=== PATIENT | male | born 1945 | race Caucasian/White ===

== ENCOUNTER 2017-11-02 12:35 | Emergency (ER) | payer MEDICARE, SELFPAY ==
[2017-11-02 12:42] VITALS: BP 147/83; PULSE 108; RESP 20; TEMP 37.7; O2SAT 97; BMI 25.0
--- NOTE | 2017-11-02 12:46 | XR_ITS ---
XR chest 2V HISTORY: ITS.REASON: COUGH ORDERING PHYSICIAN: Abe Villa PATIENT AGE: 72 years COMPARISON: 24/11/2008 FINDINGS: The cardiomediastinal silhouette and pulmonary vascularity are within normal limits. The lungs are clear without infiltrates, suspicious nodules, or pleural effusions. No acute bony abnormalities. IMPRESSION: No change with no acute finding
--- NOTE | 2017-11-02 13:36 | HMH.EDUTC ---
[facility] [place] Clinical Impression: Bronchitis Disposition: Home, Self-Care Condition on Discharge: Good Instructions: DI for Acute Bronchitis Additional Instructions: * start antibiotic today. Be sure to complete entire prescription even if feeling better. CXR negative but with cough x 3 weeks, more of a precaution * Monitor Temp. Follow up if fever develops * humidifier/vaporizer/hot steamy shower * Tessalon Perles will not cause drowsiness, use to help stop cough so that you can get some rest. If cough becomes productive, stop these and start mucinex. * Start steroid today. Helps with inflammation therefore, cough and wheezing. Follow directions on package. Rvwd side effects. Follow up with primary care IMMEDIATELY for new or worsening symptoms OR no noticeable improvement over the next 48-72 hours. This cough could be due to your lisinopril. Even if taken for years, the cough can develop at anytime. So if no improvement, discuss this with your primary care. 911 for difficulty breathing. Prescriptions: Azithromycin [Z-Nicanor 250mg Tab] 250 mg PO UD DOSE PK #6 tab Benzonatate [Tessalon Perle 100mg Cap] 200 mg PO TID PRN #25 cap PRN Reason: Cough predniSONE [Deltasone 10mg tablet] 10 mg PO BID #10 tab Time of Disposition: 13:42 Medical Decision Making Vital Signs: 11/02/17 12:42 Temperature 99.8 F H Temperature Source Temporal Artery Scan Pulse Rate [Right] 108 H Respiratory Rate 20 Blood Pressure [Right Arm] 147/83 Blood Pressure Mean [Right Arm] 104 Blood Pressure Source [Right Arm] Automatic Cuff Blood Pressure Position [Right Arm] Sitting 02 Sat by Pulse Oximetry 97 Oxygen Delivery Method Room Air Orders (Tests/Meds): ORDERS Category Date Time Status CXR 2 view (NOT portable) [XR chest 2V] Stat Exams 11/02/17 12:46 Taken - Radiology Data #1 Image(s): Chest Image Reviewed: Yes I reviewed the patient's radiology image, Yes I reviewed the patient's radiology image w/the ED provider Carrillo w/ Dr. Antunez, no acute findings - Sonny Inquiry Pt receiving controlled substance: No [facility] [place] - General Stated complaint: cough congestion Time Seen by Provider: 11/02/17 12:45 Mode of Arrival: Ambulatory Source of Information: Patient Limitations: No Limitations Description of Symptoms (Recalled from Triage Doc. by RN): COUGH CONGESTION 3 WKS HEENT Symptoms (Recalled from RN notes): Yes Resp Symptoms (Recalled from RN notes): No Skin Symptoms (Recalled from RN notes): No MS Symptoms (Recalled from RN notes): No Functional Status (Recalled from RN notes): N - History of Present Illness Provider Complaint: c/o persistant dry hacking cough x 2-3 weeks. I get this once a year every year . Started w/ PND and cold symptoms . Those all resolved without treatment but cough has lingered. Denies taking or trying anything for symptoms, including cold symptoms. Just tried waiting it out . No known sick contacts. No SOA, wheezing. Rarely a scant amount of yellow sputum. - Related Data Home Medications Medication Instructions Recorded Confirmed Lisinopril [Lisinopril 10mg Tab] 10 mg PO DAILY 11/02/17 11/02/17 Previous Rx's Medication Instructions Recorded Azithromycin [Z-Nicanor 250mg Tab] 250 mg PO UD DOSE PK #6 tab 11/02/17 Benzonatate [Tessalon Perle 100mg 200 mg PO TID PRN #25 cap 11/02/17 Cap] predniSONE [Deltasone 10mg tablet] 10 mg PO BID #10 tab 11/02/17 Allergies Allergy/AdvReac Type Severity Reaction Status Date / Time No Known Allergies Allergy Verified 11/02/17 12:49 - Worker's Comp Is this a Worker's Comp case?: No [facility] History I have reviewed the patient's past medical history: Yes Medical History: Reports:: Hypertension (treated w/ lisinopril) Denies:: Diabetes Mellitus Type 1, Diabetes Mellitus Type 2 Other Surgeries: Yes: No Previous Surgery - *Social History Smoking Status: Never smoker Alcohol Intake: never - Psychiatric History Expresses thoug
--- NOTE | 2017-11-02 13:40 | ED_ITS ---
[facility] [place] Clinical Impression: Bronchitis Disposition: Home, Self-Care Condition on Discharge: Good Instructions: DI for Acute Bronchitis Additional Instructions: * start antibiotic today. Be sure to complete entire prescription even if feeling better. CXR negative but with cough x 3 weeks, more of a precaution * Monitor Temp. Follow up if fever develops * humidifier/vaporizer/hot steamy shower * Tessalon Perles will not cause drowsiness, use to help stop cough so that you can get some rest. If cough becomes productive, stop these and start mucinex. * Start steroid today. Helps with inflammation therefore, cough and wheezing. Follow directions on package. Rvwd side effects. Follow up with primary care IMMEDIATELY for new or worsening symptoms OR no noticeable improvement over the next 48-72 hours. This cough could be due to your lisinopril. Even if taken for years, the cough can develop at anytime. So if no improvement, discuss this with your primary care. 911 for difficulty breathing. Prescriptions: Azithromycin [Z-Nicanor 250mg Tab] 250 mg PO UD DOSE PK #6 tab Benzonatate [Tessalon Perle 100mg Cap] 200 mg PO TID PRN #25 cap PRN Reason: Cough predniSONE [Deltasone 10mg tablet] 10 mg PO BID #10 tab Time of Disposition: 13:42 Medical Decision Making Vital Signs: 11/02/17 12:42 Temperature 99.8 F H Temperature Source Temporal Artery Scan Pulse Rate [Right] 108 H Respiratory Rate 20 Blood Pressure [Right Arm] 147/83 Blood Pressure Mean [Right Arm] 104 Blood Pressure Source [Right Arm] Automatic Cuff Blood Pressure Position [Right Arm] Sitting 02 Sat by Pulse Oximetry 97 Oxygen Delivery Method Room Air Orders (Tests/Meds): ORDERS Category Date Time Status CXR 2 view (NOT portable) [XR chest 2V] Stat Exams 11/02/17 12:46 Taken - Radiology Data #1 Image(s): Chest Image Reviewed: Yes I reviewed the patient's radiology image, Yes I reviewed the patient's radiology image w/the ED provider Carrillo w/ Dr. Antunez, no acute findings - Sonny Inquiry Pt receiving controlled substance: No [facility] [place] - General Stated complaint: cough congestion Time Seen by Provider: 11/02/17 12:45 Mode of Arrival: Ambulatory Source of Information: Patient Limitations: No Limitations Description of Symptoms (Recalled from Triage Doc. by RN): COUGH CONGESTION 3 WKS HEENT Symptoms (Recalled from RN notes): Yes Resp Symptoms (Recalled from RN notes): No Skin Symptoms (Recalled from RN notes): No MS Symptoms (Recalled from RN notes): No Functional Status (Recalled from RN notes): N - History of Present Illness Provider Complaint: c/o persistant dry hacking cough x 2-3 weeks. I get this once a year every year . Started w/ PND and cold symptoms . Those all resolved without treatment but cough has lingered. Denies taking or trying anything for symptoms, including cold symptoms. Just tried waiting it out . No known sick contacts. No SOA, wheezing. Rarely a scant amount of yellow sputum. - Related Data Home Medications Medication Instructions Recorded Confirmed Lisinopril [Lisinopril 10mg Tab] 10 mg PO DAILY 11/02/17 11/02/17 Previous Rx's Medication Instructions Recorded Azithromycin [Z-Nicanor 250mg Tab] 250 mg PO UD DOSE PK #6 tab 11/02/17 Benzonatate [Tessalon Perle 100mg 200 mg PO TID PRN #25 cap 11/02/17 Cap] predniSONE [Deltasone
== END 2017-11-02 13:45 | disposition home or self-care (01) ==
PROVIDERS: Emergency Provider Nurse Practitioner Family; Family Provider Internal Medicine
DX: J20.9 Acute bronchitis, unspecified (principal); I10 Essential (primary) hypertension
CPT/HCPCS: G0463; 71046; 99202

== ENCOUNTER → 2017-12-14 15:10 | Outpatient (CLI) | payer MEDICARE, SELFPAY ==
--- NOTE | 2017-12-14 15:21 | XR_ITS ---
XR chest 2V Ordering Physician: Anthony Sprague Patient Age: 72 years: Male HIST cough with sputum production. Rales left chest ORY: ITS.REASON: COUGH,SPUTUM,RALES LT LUNG BASE TECHNIQUE: PA and lateral chest COMPARISON : Previous chest film 11/02/2017 FINDINGS On PA film note slight accentuation of markings at the retrocardiac region which may reflect a subtle early infiltrate the latter, and higher contrast technique on today's radiograph may also accentuate these markings right cardiac region left base. The left upper lung field is clear. The right lung is clear. Lateral film shows no prominent findings in appears similar to previous studies . No pleural effusion or pneumothorax. Tortuous aorta. Mild elevation right hemidiaphragm again observed. IMPRESSION: \ Question, suspect minimal wispy infiltrate at the left lower lobe retrocardiac region. .
== END ==
PROVIDERS: PCP Internal Medicine; Visit Provider Internal Medicine
DX: R05 Cough (principal); R09.3 Abnormal sputum; R09.89 Other specified symptoms and signs involving the circulatory and respiratory systems
CPT/HCPCS: 71046

== ENCOUNTER → 2019-11-24 09:33 | Outpatient (CLI) | payer MEDICARE, SELFPAY ==
--- NOTE | 2019-11-24 09:42 | US_ITS ---
APPROVED REPORT Exam Type: Lower Extremity Segmental Pressures Crate Builder: Kinza Crane RDCS Indications Claudication: Edema Risk Factors History of Smoking Pressures/Indices Right Indices Left Indices Brachial 132.00 mmHg Brachial 125.00 mmHg Low Thigh 134.00 mmHg 1.02 Low Thigh 143.00 mmHg 1.08 Calf 156.00 mmHg 1.18 Calf 156.00 mmHg 1.18 Ankle(PT) 155.00 mmHg 1.17 Ankle(PT) 156.00 mmHg 1.18 Ankle(DP) 142.00 mmHg 1.08 Ankle(DP) 131.00 mmHg 0.99 Digit 82.00 mmHg 0.62 Digit 54.00 mmHg 0.41 Findings R SHEILA 1.17 L SHEILA 1.18 R TBI .62 L TBI .41 NORMAL WAVEFORMS DIMINISHED PULSES Conclusion NORMAL WAVEFORMS DIMINISHED PULSES Normal SHEILA's Low left TBI suggesting small vessel disease Electronically signed by : Valentin Holman MD 11/25/2019 17:30:47
== END ==
PROVIDERS: PCP Internal Medicine; Visit Provider Internal Medicine
DX: I70.213 Atherosclerosis of native arteries of extremities with intermittent claudication, bilateral legs (principal); M79.662 Pain in left lower leg; M79.661 Pain in right lower leg; I10 Essential (primary) hypertension
CPT/HCPCS: 93923; 93924

== ENCOUNTER → 2021-11-20 13:11 | Outpatient (CLI) | payer MEDICARE, SELFPAY ==
[2021-11-20 14:00] LABS: Basophils # 0.1 K/mm3 (0-0.2); Basophils % 2.6 % (0.1-2.0); Eosinophils # 0.2 K/mm3 (0.0-0.4); Lymphocytes % 25.6 % (10-50); Mean Corpuscular HGB Conc 32.5 g/dL (31.8-35.4); Mean Corpuscular Hemoglobin 30.8 pg (27.0-31.2); Mean Corpuscular Volume 94.9 fl (80-94); Mean Platelet Volume 8.2 fl (7.4-10.4); Monocytes # 0.3 K/mm3 (0.1-1.0); Monocytes % 7.9 % (1.7-9.3); Neutrophils # 2.3 K/mm3 (1.8-7.8); Neutrophils % 59.8 % (37.0-80.0); Platelet Count 261 K/mm3 (142-424); Red Blood Count 4.53 M/mm3 (4.60-6.20); Red Cell Distribution Width 13.8 % (11.5-17.5); White Blood Count 3.8 K/mm3 (4.8-10.8)
[2021-11-20 14:31] LABS: Alanine Aminotransferase 21 U/L (12-78); Albumin Level 4.3 g/dl (3.5-5.0); Albumin/Globulin Ratio 2.3 (1.1-1.8); Alkaline Phosphatase 50 U/L (38-126); Anion Gap 7.7 mEq/L (5-15); Aspartate Amino Transferase 35 U/L (17-59); Bilirubin,Total 0.5 mg/dl (0.2-1.3); Blood Urea Nitrogen 13 mg/dl (9-20); Calcium 9.3 mg/dl (8.4-10.2); Carbon Dioxide 32 mmol/L (22.0-30.0); Chloride 107 mmol/L (98-107); Chol/HDL Ratio 2.6 (1-3.5); Cholesterol 228 mg/dl (140-200); Estimated Glomerular Filt Rate 82 ml/min (>60); GFR (African American) 99 ML/MIN (>60); Globulin 1.9 g/dL (1.3-3.2); Glucose 85 mg/dl (74-100); HDL Cholesterol 88 mg/dl (40-60); Potassium 4.7 mmoL/L (3.5-5.1); Sodium 142 mmol/L (136-145); Total Protein,Serum 6.2 g/dl (6.3-8.2); Triglycerides 122 mg/dl (30-150); VLDL Cholesterol 24 mg/dL (0-40)
[2021-11-20 14:42] LABS: Direct LDL Cholesterol 98.41 mg/dL (100-129)
[2021-11-20 15:02] LABS: Prostate Specific Ag Screen 1.6 ng/ml (0.0-4.0)
== END ==
PROVIDERS: Visit Provider Internal Medicine
DX: I10 Essential (primary) hypertension (principal); E78.5 Hyperlipidemia, unspecified; M15.0 Primary generalized (osteo)arthritis; N40.1 Benign prostatic hyperplasia with lower urinary tract symptoms; Z12.5 Encounter for screening for malignant neoplasm of prostate
CPT/HCPCS: 80053; 80061; 85025; G0103

== ENCOUNTER → 2022-05-20 13:29 | Outpatient (CLI) | payer MEDICARE, SELFPAY ==
[2022-05-20 15:13] LABS: Alanine Aminotransferase 20 U/L (12-78); Albumin Level 3.7 g/dl (3.5-5.0); Albumin/Globulin Ratio 1.7 (1.1-1.8); Alkaline Phosphatase 51 U/L (38-126); Anion Gap 5.3 mEq/L (5-15); Aspartate Amino Transferase 31 U/L (17-59); Bilirubin,Total 0.3 mg/dl (0.2-1.3); Blood Urea Nitrogen 13 mg/dl (9-20); Calcium 8.8 mg/dl (8.4-10.2); Carbon Dioxide 29 mmol/L (22.0-30.0); Chloride 108 mmol/L (98-107); Cholesterol 207 mg/dl (140-200); Estimated Glomerular Filt Rate 94 ml/min (>60); GFR (African American) 113 ML/MIN (>60); Globulin 2.2 g/dL (1.3-3.2); Glucose 84 mg/dl (74-100); HDL Cholesterol 68 mg/dl (40-60); Potassium 4.3 mmoL/L (3.5-5.1); Sodium 138 mmol/L (136-145); Total Protein,Serum 5.9 g/dl (6.3-8.2); Triglycerides 109 mg/dl (30-150); VLDL Cholesterol 22 mg/dL (0-40)
[2022-05-20 15:25] LABS: Direct LDL Cholesterol 96.79 mg/dL (100-129)
== END ==
PROVIDERS: PCP Internal Medicine; Visit Provider Internal Medicine
DX: I10 Essential (primary) hypertension (principal); E78.5 Hyperlipidemia, unspecified; Z85.46 Personal history of malignant neoplasm of prostate
CPT/HCPCS: 80053; 80061

== ENCOUNTER 2022-11-04 10:47 | Emergency (ER) | payer MEDICARE, SELFPAY ==
[2022-11-04 10:47] VITALS: BP 164/92; PULSE 73; RESP 18; TEMP 36.9; O2SAT 97; BMI 23.3
--- NOTE | 2022-11-04 11:26 | HMH.EDGENADL ---
Discharge Plan Disposition Patient Disposition: Home, Self-Care Condition: Fair Prescriptions Prescriptions: New cephalexin 750 mg capsule 750 mg PO Q8H 7 Days Qty: 21 0RF No Action lisinopril 10 MG tablet 10 mg PO DAILY prednisone 10 MG tablet 10 mg PO BID Qty: 10 0RF benzonatate 100 MG capsule 200 mg PO TID PRN (Reason: Cough) Qty: 25 0RF azithromycin 250 MG tablet 250 mg PO UD DOSE PK Qty: 6 0RF Rx Instructions: Take two (2) tablets today, then one (1) tablet days #2 thru #5 Referrals Follow up/Referrals: Anthony Sprague MD [Primary Care Provider] - See instructions Clinical Impressions Clinical Impression: Foreign body hand Instructions Patient Instructions: DI for Laceration Repair Discharge ED Provider: Bandar Perez General Adult HPI General Chief complaint: Wound/Laceration Stated complaint: RT hand laceration 11/04 AO@home Time Seen by Provider: 11/04/22 10:47 Mode of Arrival: Ambulatory Source of Information: Patient Limitations: No Limitations Description of Symptoms (Recalled from ER Triage Doc. by RN): Pt has open area to [facility] area, states he hit his hand earlier today busting it open. Pt reports the area that is open has a old piece of metal in it that has been there a lot of years . No active bleeding noted. History of Present Illness HPI narrative: Patient is a 77-year-old male who presents with concern for a right hand foreign body and laceration. He states that approximately 50 years ago he got a metallic foreign body in his right hand. He did not remove it at the time as they said to leave it unless it ended up bothering him. He says that he hit his hand earlier today and the area seem to break open and he could see the foreign body. He tried to get it out himself but he was unable to. He denies any numbness or tingling to the extremity. Denies any other injuries. Related Data Home Medications Medication Instructions Recorded Confirmed lisinopril 10 mg tablet 10 mg PO DAILY Hypertension 11/02/17 11/02/17 Previous Rx's Medication Instructions Recorded azithromycin 250 mg tablet 250 mg PO UD DOSE PK #6 tabs 11/02/17 benzonatate 100 mg capsule 200 mg PO TID PRN Cough #25 caps 11/02/17 prednisone 10 mg tablet 10 mg PO BID #10 tabs 11/02/17 cephalexin 750 mg capsule 750 mg PO Q8H 7 days #21 caps 11/04/22 Allergies Allergy/AdvReac Type Severity Reaction Status Date / Time No Known Allergies Allergy Verified 11/02/17 12:49 [facility] Disclaimer: The information contained in this section may have been updated after the patient was seen, as this information can be updated by other users. Social History Smoking Status: Never smoker alcohol intake: never current occupational status: previously employed Travel in the last 8 weeks: None ROS Obtained: Yes All systems reviewed & no additional complaints except as documented A 14 point review of system was obtained and otherwise negative except per HPI Physical Exam General General appearance: alert and in no apparent distress Head Head exam: atraumatic, normocephalic and normal inspection Eye Eye exam: Present normal appearance, PERRL and EOMI ENT ENT exam: Present normal exam, normal oropharynx, mucous membranes moist, TM's normal bilaterally and normal external ear exam Neck Neck exam: Present normal inspection, full ROM and trachea midline; Absent meningismus or lymphadenopathy Chest Chest inspection: Present normal inspection and symmetric chest wall rise; Absent tenderness Respiratory Respiratory exam: Present normal lung sounds bilaterally; Absent respiratory distress Cardiovascular Cardiovascular exam: Present regular rate and normal rhythm; Absent JVD Abdominal Exam Abdominal exam: Present soft and normal bowel sounds; Absent distention, tenderness or guarding Extremities Exam Extremities exam: Present normal inspection, full ROM and normal capillary re
[2022-11-04 12:02] VITALS: BP 160/80; PULSE 66; RESP 18; TEMP 36.8; O2SAT 97
== END 2022-11-04 11:40 | disposition home or self-care (01) ==
PROVIDERS: Emergency Provider Student in an Organized Health Care Education/Training Program; PCP Internal Medicine
DX: S61.421A Laceration with foreign body of right hand, initial encounter (principal); W45.8XXA Other foreign body or object entering through skin, initial encounter; W22.09XA Striking against other stationary object, initial encounter
CPT/HCPCS: 12002; 10120; 99283; 99284

== ENCOUNTER → 2022-11-18 13:19 | Outpatient (CLI) | payer MEDICARE, SELFPAY ==
[2022-11-18 14:24] LABS: Basophils # 0.1 K/mm3 (0-0.2); Basophils % 2.8 % (0.1-2.0); Eosinophils # 0.2 K/mm3 (0.0-0.4); Eosinophils % 3.6 % (0.1-12.0); Hematocrit 42.7 % (42.0-52.0); Hemoglobin 14.1 g/dL (14.1-18.0); Lymphocytes % 24.5 % (10-50); Mean Corpuscular HGB Conc 33.1 g/dL (31.8-35.4); Mean Corpuscular Hemoglobin 30.9 pg (27.0-31.2); Mean Corpuscular Volume 93.4 fl (80-94); Monocytes # 0.4 K/mm3 (0.1-1.0); Monocytes % 8.5 % (1.7-9.3); Neutrophils # 2.5 K/mm3 (1.8-7.8); Neutrophils % 60.6 % (37.0-80.0); Platelet Count 275 K/mm3 (142-424); Red Blood Count 4.57 M/mm3 (4.60-6.20); Red Cell Distribution Width 13.4 % (11.5-17.5); White Blood Count 4.1 K/mm3 (4.8-10.8)
[2022-11-18 15:30] LABS: Alanine Aminotransferase 18 U/L (12-78); Albumin/Globulin Ratio 1.8 (1.1-1.8); Alkaline Phosphatase 51 U/L (38-126); Anion Gap 8.3 mEq/L (5-15); Aspartate Amino Transferase 25 U/L (17-59); Bilirubin,Total 0.4 mg/dl (0.2-1.3); Blood Urea Nitrogen 14 mg/dl (9-20); Calcium 8.7 mg/dl (8.4-10.2); Carbon Dioxide 30 mmol/L (22.0-30.0); Chloride 105 mmol/L (98-107); Chol/HDL Ratio 2.3 (1-3.5); Cholesterol 205 mg/dl (140-200); Estimated Glomerular Filt Rate 82 ml/min (>60); GFR (African American) 99 ML/MIN (>60); Globulin 2.2 g/dL (1.3-3.2); Glucose 83 mg/dl (74-100); HDL Cholesterol 91 mg/dl (40-60); Potassium 4.3 mmoL/L (3.5-5.1); Sodium 139 mmol/L (136-145); Total Protein,Serum 6.2 g/dl (6.3-8.2); Triglycerides 80 mg/dl (30-150); VLDL Cholesterol 16 mg/dL (0-40)
[2022-11-18 15:51] LABS: Direct LDL Cholesterol 82.42 mg/dL (100-129)
== END ==
PROVIDERS: PCP Internal Medicine; Visit Provider Internal Medicine
DX: I10 Essential (primary) hypertension (principal); E78.5 Hyperlipidemia, unspecified; M15.0 Primary generalized (osteo)arthritis; Z85.46 Personal history of malignant neoplasm of prostate; Z12.5 Encounter for screening for malignant neoplasm of prostate
CPT/HCPCS: 80053; 80061; 85025; G0103

== ENCOUNTER → 2023-05-26 13:29 | Outpatient (CLI) | payer MEDICARE, SELFPAY ==
[2023-05-26 15:32] LABS: Basophils # 0.1 K/mm3 (0-0.2); Basophils % 1.6 % (0.1-2.0); Eosinophils # 0.2 K/mm3 (0.0-0.4); Eosinophils % 4.8 % (0.1-12.0); Hematocrit 44.1 % (42.0-52.0); Hemoglobin 13.5 g/dL (14.1-18.0); Lymphocytes % 30.5 % (10-50); Mean Corpuscular HGB Conc 30.7 g/dL (31.8-35.4); Mean Corpuscular Volume 94.5 fl (80-94); Mean Platelet Volume 8.4 fl (7.4-10.4); Monocytes # 0.3 K/mm3 (0.1-1.0); Monocytes % 9.6 % (1.7-9.3); Neutrophils # 1.8 K/mm3 (1.8-7.8); Neutrophils % 53.5 % (37.0-80.0); Platelet Count 239 K/mm3 (142-424); Red Blood Count 4.66 M/mm3 (4.60-6.20); Red Cell Distribution Width 13.8 % (11.5-17.5); White Blood Count 3.4 K/mm3 (4.8-10.8)
[2023-05-26 16:35] LABS: Alanine Aminotransferase 20 U/L (12-78); Albumin Level 3.9 g/dl (3.5-5.0); Albumin/Globulin Ratio 1.8 (1.1-1.8); Alkaline Phosphatase 53 U/L (38-126); Anion Gap 11.4 mEq/L (5-15); Aspartate Amino Transferase 26 U/L (17-59); Bilirubin,Total 0.5 mg/dl (0.2-1.3); Blood Urea Nitrogen 14 mg/dl (9-20); Calcium 8.7 mg/dl (8.4-10.2); Carbon Dioxide 29 mmol/L (22.0-30.0); Chloride 104 mmol/L (98-107); Chol/HDL Ratio 2.3 (1-3.5); Cholesterol 201 mg/dl (140-200); Estimated Glomerular Filt Rate 109 ml/min (>60); GFR (African American) 132 ML/MIN (>60); Globulin 2.2 g/dL (1.3-3.2); Glucose 77 mg/dl (74-100); HDL Cholesterol 89 mg/dl (40-60); Potassium 4.4 mmoL/L (3.5-5.1); Sodium 140 mmol/L (136-145); Total Protein,Serum 6.1 g/dl (6.3-8.2); Triglycerides 103 mg/dl (30-150); VLDL Cholesterol 21 mg/dL (0-40)
[2023-05-26 16:47] LABS: Direct LDL Cholesterol 82.77 mg/dL (100-129)
[2023-05-26 17:26] LABS: Vitamin B12 215 pg/mL (239-931)
== END ==
PROVIDERS: PCP Internal Medicine; Visit Provider Internal Medicine
DX: I10 Essential (primary) hypertension (principal); E78.5 Hyperlipidemia, unspecified; R20.2 Paresthesia of skin; M15.0 Primary generalized (osteo)arthritis; Z85.46 Personal history of malignant neoplasm of prostate
CPT/HCPCS: 80053; 80061; 82607; 84443; 85025

== ENCOUNTER 2023-11-27 12:38 | Outpatient (CLI) | payer MEDICARE, SELFPAY ==
[2023-11-27 15:14] LABS: Alanine Aminotransferase 21 U/L (12-78); Albumin Level 4.3 g/dl (3.5-5.0); Alkaline Phosphatase 58 U/L (38-126); Anion Gap 9.2 mEq/L (5-15); Aspartate Amino Transferase 28 U/L (17-59); Bilirubin,Total 0.4 mg/dl (0.2-1.3); Blood Urea Nitrogen 17 mg/dl (9-20); Calcium 9.4 mg/dl (8.4-10.2); Carbon Dioxide 30 mmol/L (22.0-30.0); Chloride 103 mmol/L (98-107); Chol/HDL Ratio 2.7 (1-3.5); Cholesterol 238 mg/dl (140-200); Estimated Glomerular Filt Rate 81 ml/min (>60); GFR (African American) 98 ML/MIN (>60); Globulin 2.2 g/dL (1.3-3.2); Glucose 87 mg/dl (74-100); HDL Cholesterol 88 mg/dl (40-60); Potassium 4.2 mmoL/L (3.5-5.1); Sodium 138 mmol/L (136-145); Total Protein,Serum 6.5 g/dl (6.3-8.2); Triglycerides 93 mg/dl (30-150); VLDL Cholesterol 19 mg/dL (0-40)
[2023-11-27 15:24] LABS: Direct LDL Cholesterol 101.06 mg/dL (100-129)
[2023-11-27 15:43] LABS: Prostate Specific Ag, Diagnost 2.67 ng/ml (0.0-4.0)
== END 2023-11-27 23:59 ==
LOC: LAB.DROPOF 12:39
PROVIDERS: PCP Internal Medicine; Visit Provider Internal Medicine
DX: I10 Essential (primary) hypertension (principal); E78.5 Hyperlipidemia, unspecified; M15.0 Primary generalized (osteo)arthritis; C61 Malignant neoplasm of prostate
CPT/HCPCS: 80053; 80061; 84153

== ENCOUNTER 2024-04-07 10:18 | Emergency (ER) | payer MEDICARE, SELFPAY ==
[2024-04-07 10:20] VITALS: BP 157/88; PULSE 76; RESP 20; TEMP 36.8; O2SAT 96; BMI 20.7
[2024-04-07 11:00] VITALS: BP 131/78; PULSE 61; O2SAT 95
[2024-04-07 11:30] VITALS: BP 143/83; PULSE 61; O2SAT 94
[2024-04-07 12:00] VITALS: BP 145/87; PULSE 56; O2SAT 96
[2024-04-07] MEDS: TET/DIPHTH/PERT-ADULT 0.5ML SYRINGE 0.5 ML IM (12:26)
--- NOTE | 2024-04-07 12:52 | HMH.EDGENADL ---
Discharge Plan Disposition Patient Disposition: Home, Self-Care Prescriptions Prescriptions: No Action lovastatin 40 mg tablet 40 mg PO DAILY hydrochlorothiazide 25 mg tablet 12.5 mg PO DAILY trazodone 50 mg tablet 50 mg PO HS lisinopril 10 mg tablet 10 mg PO BID Referrals Follow up/Referrals: Anthony Sprague MD [Primary Care Provider] - See instructions Activity Restrictions/Add. Instructions Additional Instructions/Restrictions: Absorbable sutures that were placed today for your lip laceration they should be ruled in 5 to 7 days return with any significant spreading redness pus high fevers or other concerns. Clinical Impressions Clinical Impression: Laceration of lip Instructions Patient Instructions: DI for Laceration Repair Discharge ED Provider: Adolfo Mcginnis General Adult HPI General Chief complaint: Wound/Laceration Stated complaint: myrtle handle hit in mouth busted lip Time Seen by Provider: 04/07/24 12:39 Mode of Arrival: Ambulatory Source of Information: Patient Limitations: No Limitations Description of Symptoms (Recalled from ER Triage Doc. by RN): pt to ed c/o lower lip lac. 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 pt denies LOC. History of Present Illness HPI narrative: 78-year-old presented with lip laceration hit his lip on a farm equipment no significant injury elsewhere no loss of consciousness not on anticoagulants or antiplatelets. Related Data Home Medications Medication Instructions Recorded Confirmed hydrochlorothiazide 25 mg tablet 12.5 mg PO DAILY 03/29/24 03/29/24 lisinopril 10 mg tablet 10 mg PO BID Hypertension 03/29/24 03/29/24 lovastatin 40 mg tablet 40 mg PO DAILY 03/29/24 03/29/24 trazodone 50 mg tablet 50 mg PO HS 03/29/24 03/29/24 Allergies Allergy/AdvReac Type Severity Reaction Status Date / Time No Known Allergies Allergy Verified 11/02/17 12:49 [facility] Disclaimer: The information contained in this section may have been updated after the patient was seen, as this information can be updated by other users. Social History (Updated 11/04/22 @ 12:31 by Bandar Perez MD) Smoking Status: Former smoker alcohol intake: never current occupational status: previously employed Travel in the last 8 weeks: None ROS Obtained: Yes All systems reviewed & no additional complaints except as documented Physical Exam General General appearance: alert Head Head exam: other (Gaping 3 cm laceration of the lower lip on the left side involving the vermilion border) Respiratory Respiratory exam: Present normal lung sounds bilaterally Cardiovascular Cardiovascular exam: Present regular rate Neurological Exam Neurological exam: Present alert and oriented X3 Medical Decision Making Sonny Inquiry Pt receiving controlled substance: No Vital Signs: 04/07/24 10:20 04/07/24 11:00 04/07/24 11:30 Temperature 98.2 F Temperature Source Oral Pulse Rate 61 61 Pulse Rate [Left Radial] 76 Respiratory Rate 20 Blood Pressure 131/78 143/83 H Blood Pressure [Right Arm] 157/88 H Blood Pressure Mean [Right Arm] 111 02 Sat by Pulse Oximetry 96 95 94 L Oxygen Delivery Method Room Air 04/07/24 12:00 Temperature Temperature Source Pulse Rate 56 L Pulse Rate [Left Radial] Respiratory Rate Blood Pressure 145/87 H Blood Pressure [Right Arm] Blood Pressure Mean [Right Arm] 02 Sat by Pulse Oximetry 96 Oxygen Delivery Method Orders (Tests/Meds): ED MEDICATIONS Discontinued Medications Generic Name Dose Route Start Last Admin Trade Name Freq PRN Reason Stop Dose Admin Tetanus/Reduced Diphtheria/Acell Pertussis 0.5 ml 04/07/24 12:01 04/07/24 12:26 Tet/Diphth/Pert-Adult 0.5ml Syringe IM 04/07/24 12:02 0.5 ml .ONCE ONE Administration Medical Decision Narrative: 78-year-old above history exam is otherwise normal no concern for deeper jaw or mucosal infection or head injury. Lip laceration above vermilion border it was well-approximated and absorbable sutures were placed he tolerated procedure well was discharged with return precautions. Procedures Laceration Laceration 1: Site: lip Side (If applicable): left Size (cm): 3 Description: involves bonnie border Local Anesthetic: lidocaine 1% and with epi Amount of anesthesia used (mL): 5 (Mental block) Skin layer closed with: other (Vermilion border and skin closed with 5-0 fast gut coastal surface lacerations closed with 5-0 Vicryl) Size (cm): 5-0 Critical Care Critical Care Time Critical Care Time: No
[2024-04-07 12:59] VITALS: BP 145/87; PULSE 56; RESP 18; TEMP 36.7; O2SAT 96
== END 2024-04-07 13:01 | disposition home or self-care (01) ==
PROVIDERS: Emergency Provider Student in an Organized Health Care Education/Training Program; PCP Internal Medicine
DX: S01.511A Laceration without foreign body of lip, initial encounter (principal); W22.8XXA Striking against or struck by other objects, initial encounter; Z23 Encounter for immunization
CPT/HCPCS: 12013; 90471; 90715; 99283

== ENCOUNTER 2024-05-26 18:26 | Outpatient (CLI) | payer MEDICARE, SELFPAY ==
[2024-05-26 12:21] LABS: Basophils # 0.1 K/mm3 (0-0.2); Basophils % 1.9 % (0.1-2.0); Eosinophils # 0.1 K/mm3 (0.0-0.4); Eosinophils % 4.1 % (0.1-12.0); Hematocrit 44.8 % (42.0-52.0); Hemoglobin 14.6 g/dL (14.1-18.0); Lymphocytes # 0.9 K/mm3 (0.7-4.5); Lymphocytes % 25.6 % (10-50); Mean Corpuscular HGB Conc 32.6 g/dL (31.8-35.4); Mean Corpuscular Hemoglobin 31.6 pg (27.0-31.2); Mean Corpuscular Volume 96.9 fl (80-94); Mean Platelet Volume 8.2 fl (7.4-10.4); Monocytes # 0.3 K/mm3 (0.1-1.0); Monocytes % 8.2 % (1.7-9.3); Neutrophils # 2.1 K/mm3 (1.8-7.8); Neutrophils % 60.2 % (37.0-80.0); Platelet Count 255 K/mm3 (142-424); Red Blood Count 4.62 M/mm3 (4.60-6.20); Red Cell Distribution Width 14.1 % (11.5-17.5); White Blood Count 3.4 K/mm3 (4.8-10.8)
[2024-05-26 12:46] LABS: Alanine Aminotransferase 26 U/L (12-78); Albumin Level 4.2 g/dl (3.5-5.0); Albumin/Globulin Ratio 1.8 (1.1-1.8); Alkaline Phosphatase 49 U/L (38-126); Anion Gap 9.8 mEq/L (5-15); Aspartate Amino Transferase 33 U/L (17-59); Bilirubin,Total 0.6 mg/dl (0.2-1.3); Blood Urea Nitrogen 13 mg/dl (9-20); Calcium 9.1 mg/dl (8.4-10.2); Carbon Dioxide 27 mmol/L (22.0-30.0); Chloride 106 mmol/L (98-107); Chol/HDL Ratio 2.3 (1-3.5); Cholesterol 245 mg/dl (140-200); Estimated Glomerular Filt Rate 72 ml/min (>60); GFR (African American) 87 ML/MIN (>60); Globulin 2.4 g/dL (1.3-3.2); Glucose 91 mg/dl (74-100); HDL Cholesterol 108 mg/dl (40-60); Potassium 3.8 mmoL/L (3.5-5.1); Sodium 139 mmol/L (136-145); Total Protein,Serum 6.6 g/dl (6.3-8.2); Triglycerides 106 mg/dl (30-150); VLDL Cholesterol 21 mg/dL (0-40)
[2024-05-26 12:57] LABS: Direct LDL Cholesterol 97.27 mg/dL (100-129)
[2024-05-26 13:17] LABS: Prostate Specific Ag, Diagnost 2.65 ng/ml (0.0-4.0)
== END 2024-05-26 23:59 | disposition home or self-care (01) ==
LOC: LAB.DROPOF 18:26
PROVIDERS: PCP Internal Medicine; Visit Provider Internal Medicine
DX: E78.5 Hyperlipidemia, unspecified (principal); C61 Malignant neoplasm of prostate; I10 Essential (primary) hypertension; Z87.891 Personal history of nicotine dependence
CPT/HCPCS: 80053; 80061; 84153; 85025

== ENCOUNTER 2024-11-24 12:27 | Outpatient (CLI) | payer MEDICARE, SELFPAY ==
[2024-11-24 13:00] LABS: Albumin Level 4.3 g/dl (3.5-5.0); Chloride 102 mmol/L (98-107); Potassium 4.4 mmoL/L (3.5-5.1); Sodium 139 mmol/L (136-145)
[2024-11-24 13:03] LABS: Alanine Aminotransferase 27 U/L (12-78); Alkaline Phosphatase 55 U/L (38-126); Anion Gap 14.4 mEq/L (5-15); Aspartate Amino Transferase 33 U/L (17-59); Bilirubin,Total 0.4 mg/dl (0.2-1.3); Blood Urea Nitrogen 15 mg/dl (9-20); Calcium 9.3 mg/dl (8.4-10.2); Carbon Dioxide 27 mmol/L (22.0-30.0); Cholesterol 241 mg/dl (140-200); Estimated Glomerular Filt Rate 93 ml/min (>60); GFR (African American) 113 ML/MIN (>60); Globulin 2.2 g/dL (1.3-3.2); Glucose 86 mg/dl (74-100); Total Protein,Serum 6.5 g/dl (6.3-8.2); Triglycerides 101 mg/dl (30-150); VLDL Cholesterol 20 mg/dL (0-40)
[2024-11-24 13:04] LABS: Chol/HDL Ratio 2.3 (1-3.5); HDL Cholesterol 104 mg/dl (40-60)
[2024-11-24 13:14] LABS: Direct LDL Cholesterol 99.11 mg/dL (100-129)
[2024-11-24 16:28] LABS: Vitamin B12 855 pg/mL (239-931)
== END 2024-11-24 23:59 | disposition home or self-care (01) ==
LOC: LAB.DROPOF 12:27
PROVIDERS: PCP Internal Medicine; Visit Provider Internal Medicine
DX: E78.5 Hyperlipidemia, unspecified (principal); E53.8 Deficiency of other specified B group vitamins; I10 Essential (primary) hypertension; Z87.891 Personal history of nicotine dependence
CPT/HCPCS: 80053; 80061; 82607

== ENCOUNTER 2025-05-24 13:30 | Outpatient (CLI) | payer MEDICARE, SELFPAY ==
[2025-05-24 13:36] LABS: Hematocrit 41.5 % (42.0-52.0); Hemoglobin 13.8 g/dL (14.1-18.0); Immature Granulocytes % 0.6 %; Mean Corpuscular HGB Conc 33.3 g/dL (31.8-35.4); Mean Corpuscular Hemoglobin 30.5 pg (27.0-31.2); Mean Corpuscular Volume 91.8 fl (80-94); Nucleated Red Blood Cells % 0 %; Platelet Count 219 K/mm3 (142-424); Red Blood Count 4.52 M/mm3 (4.60-6.20); Red Cell Distribution Width-SD 47.8 fL; White Blood Count 3.3 K/mm3 (4.8-10.8)
[2025-05-24 14:13] LABS: Alanine Aminotransferase 19 U/L (12-78); Albumin Level 4.0 g/dl (3.5-5.0); Albumin/Globulin Ratio 2.2 (1.1-1.8); Alkaline Phosphatase 58 U/L (38-126); Anion Gap 10.0 mEq/L (5-15); Aspartate Amino Transferase 29 U/L (17-59); Bilirubin,Total 0.4 mg/dl (0.2-1.3); Blood Urea Nitrogen 13 mg/dl (9-20); Calcium 9.1 mg/dl (8.4-10.2); Carbon Dioxide 29 mmol/L (22.0-30.0); Chloride 104 mmol/L (98-107); Cholesterol 211 mg/dl (140-200); Creatinine,Serum 0.90 mg/dl (0.66-1.25); Estimated Glomerular Filt Rate 81 ml/min (>60); GFR (African American) 98 ML/MIN (>60); Globulin 1.8 g/dL (1.3-3.2); Glucose 84 mg/dl (74-100); HDL Cholesterol 83 mg/dl (40-60); Potassium 4.0 mmoL/L (3.5-5.1); Sodium 139 mmol/L (136-145); Total Protein,Serum 5.8 g/dl (6.3-8.2); Triglycerides 72 mg/dl (30-150)
[2025-05-24 14:44] LABS: Prostate Specific Ag, Diagnost 2.91 ng/ml (0.0-4.0)
== END 2025-05-24 23:59 | disposition home or self-care (01) ==
LOC: LAB.DROPOF 13:31
PROVIDERS: PCP Internal Medicine; Visit Provider Internal Medicine
DX: E78.5 Hyperlipidemia, unspecified (principal); I10 Essential (primary) hypertension; Z85.46 Personal history of malignant neoplasm of prostate
CPT/HCPCS: 80053; 80061; 84153; 85025

== ENCOUNTER 2025-06-27 11:44 | Emergency (ER) | payer MEDICARE, SELFPAY ==
--- OUTSIDE RECORDS SUMMARY | 2025-05-29 13:30 | XMS_ITS | Encounter Summary ---
Author Organization [employer] ([place], [place], [place], [place]) Address [address] [place] [address] Care Team Providers Care A R Collections Rep Name Role Phone Alonso Parr PA-C Unavailable Yohana Bah MD Unavailable Reason for Visit * Reason Comments Follow-up 3 months Encounter Details Date Type Department Care Team (Late st Contact Info) Description 05/29/2025 1:30 PM EDT Office Visit [facility] Orthopedics - [address] [place] [phone] Yohana Bah MD [address] [place], [place] [id number] Bilateral carpal tunnel syndrome (Primary Dx) Social History Tobacco Use Types Packs/Day Years Used Date Smoking Tobacco: Never Smokeless Tobacco: Never Alcohol Use Standard Drinks/Week Comments Never 0 (1 standard drink = 0.6 oz pur e alcohol) Sex and Gender Information Value Date Recorded Sex Assigned at Not on file Legal Sex Male 6:34 PM CDT Gender Identity Not on file Sexual Orientation Not on file documented as of this encounter Last Filed Vital Signs Vital Sign Reading Time Taken Comments Blood Pressure 156/81 05/29/2025 2:02 PM EDT Pulse 62 05/29/2025 2:02 PM EDT Temperature - - Respiratory Rate - - Oxygen Saturation - - Inhaled Oxygen Concentration - - Weight 68 kg (150 lb) 05/29/2025 1:22 PM EDT Height 162.6 cm (5' 4 ) 05/29/2025 1:22 PM EDT Body Mass Index 25.75 05/29/2025 1:22 PM EDT documented in this encounter Progress Notes * Yohana Bah MD - 05/29/2025 1:30 PM EDTAssociated Order(s): B CTI Subjective: Anastacio Carrillo is a 79 y.o. male. No ref. provider found Work Comp []Yes [x]No Hand Dominance: right-handed Employment: Retired Chief Complaint Patient presents with Follow-up 3 months Patient returns for follow-up regarding Bilateral CTS. The patient received injections on 02/24/25 which he says might help a little but continues to experience numbness/tingling/pain. Pain today in mariam hands 03/04. 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, LT 39 De Luna pinch RT 20, LT 20 Date of Onset of Symptoms: [x]On-going problem Trauma: []+ [x]- Mechanism of Injury: Pain Location: Bilateral hands Severity (1-10) Quality: varies Numbness: [x]+ []- [x]Occasional []Constant Tingling: [x]+ []- [x]Occasional []Constant Night Symptoms: [x]+ []- x/wk Additional Symptoms: []None []Drainage []Neck Pain []Redness []Swelling []Stiffness []Bruising [x]Weakness []Drop Items []Other: Review of Systems [x]No change from previous [x]Change from previous [x]Reviewed ROS by Yohana Bah MD General: No recent fever or chills, no recent weight loss or weight gain, no insomnia HEENT: No change in vision, no glasses/contacts, no hearing loss, no tinnitus, no vertigo, no congestion/sinus issues CVS: No chest pain, no palpitations, no edema, no varicose veins Resp: No dyspnea, no wheezing, no cough, no hemoptysis GI: No dysphagia, no nausea, no vomiting, no heart burn, no constipation, no diarrhea : No dysuria, no hematuria, no nocturia, no history of chronic UTI Musculoskeletal: See HPI Derm: No rash, no abrasions, no skin discoloration, no history or MRSA Neuro: No headaches, no seizures, no stroke, no tremors, no muscle weakness, no difficulty walking,no numbness/tingling, no neuropathy Endo: No cold/heat intolerance Heme: No abnormal bruising or bleeding Psych: No depression, no anxiety, no fatigue, no mood swings Vitals: 05/29/25 1322 05/29/25 1402 BP: (!) 164/88 (!) 156/81 Patient Position: Sitting Sitting Pulse: 61 62 Weight: 68 kg (150 lb) Height: 1.626 m (5' 4 ) Past Medical History: Diagnosis Date Hyperlipidemia Hypertension Past Surgical History: Procedure Laterality Date SKIN CANCER EXCISION on face Current Outpatient Medications Medication Sig Dispense Refill hydroCHLOROthiazide (HYDRODIURIL) 25 MG tablet Take 0.5 tablets (12.5 mg total) by mouth every morning. lisinopriL (ZESTRIL) 20 MG tablet Take 1 tablet (20 mg total) by mouth 2 (two) times daily. lovastatin (MEVACOR) 40 MG tablet Take 1 tablet (40 mg total) by mouth daily. traZODone (DESYREL) 50 MG tablet Take 1 tablet (50 mg total) by mouth nightly. No current facility-administered medications for this visit. No Known Allergies Family History Problem Relation Name Age of Onset Hypertension Other Arthritis Other Hyperlipidemia Other Social History Tobacco Use Smoking status: Never Smokeless tobacco: Never Substance Use Topics Alcohol use: Never Objective: BP (!) 156/81 (Patient Position: Sitting) Pulse 62 Ht 1.626 m (5' 4 ) Wt 68 kg (150 lb) BMI25.75 kg/m?? Physical Exam Physical Examination: General: [x]Awake, Alert, Oriented [x]Ambulatory [x]No Acute Distress [x]Mucus Membranes pink, moist [x]Pupils equal [x]Respiratory even, unlabored Skin: [x]Warm and dry with good cap refill [] []+ [x]- []+ [x]- []+ [x]- []+ [x]- Dystrophic changes Hypersweating Hypertrichosis Discoloration Wound/Incision: []+ []- Location: No thenar, hypothenar or intrinsic atrophy. No evidence of hypo/hyper pigmentation. 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 []+ []- []+ []- Sukh Nodes []+ []- []+ []- Heberden Nodes []+ []- []+ []- A1 Shwetha Tenderness []+ []- []+ []- Triggering []+ []- []+ []- Pain on lateral stress []+ []- []+ []- UCL Instability []+ []- []+ []- RCL Instability []+ []- []+ []- Thenar Atrophy []+ [x]- []+ [x]- Hypothenar Atrophy []+ [x]- []+ [x]- Tinels Compression Right Left Right Left Carpel Tunnel [x]+ []- [x]+ []- Carpal T [x]+ []- [x]+ []- Pronator []+ []- []+ []- Phalen's [x]+ []- [x]+ []- Cubital Tunnel []+ [x]- []+ [x]- Pronator T []+ []- []+ []- Guyon's Canal []+ [x]- []+ [x]- Elbow Hyperflex []+ []- []+ []- Infraclavicular []+ []- []+ []- Infraclavicular []+ []- []+ []- Supraclavicular []+ []- []+ []- Supraclavicular []+ []- []+ []- EMG/NCS: No results found for this or any previous visit. Imaging Treatment: B CTI Date/Time: 05/29/2025 2:22 PM Performed by: Yohana Bah MD Authorized by: Yohana Bah MD Consent: Consent obtained: Verbal and written Consent given by: Patient Risks, benefits, and alternatives were discussed: yes Risks discussed: Bleeding, infection, pain, incomplete drainage, nerve damage and poor cosmetic result [place] protocol: Procedure explained and questions answered to patient or proxy's satisfaction: yes Relevant documents present and verified: yes Test results available: yes Imaging studies available: yes Site/side marked: yes Immediately prior to procedure, a time out was called: yes Patient identity confirmed: Verbally with patient Indications: Indications: Carpal Tunnel Syndrome Pre-procedure details: Preparation: Patient was prepped and draped in the usual sterile fashion Sedation: Sedation type: None Anesthesia: Anesthesia method: Topical application Procedure specific details: Bilateral Carpal Tunnel injections We discussed conservative treatment with Kenalog injections which can take several days for effect.Transient numbness in the hand was discussed post injection which will resolve in a few hours. Eachhand was laid in the supine position. 1 ml of 1% Lidocaine and Kenalog 10mg were injected ulnar to the palmaris longus tendon (in the soft indentation of the volar wrist) after the skin was prepped with adequately with alcohol. A sterile bandaid was applied. Post-procedure details: Procedure completion: Tolerated well, no immediate complications Assessment: ICD-10-CM ICD-9-CM 1. Bilateral carpal tunnel syndrome G56.03 354.0 triamcinolone acetonide (KENALOG) injection 10 mg lidocaine (XYLOCAINE) injection 1% Plan: Discussed treatment options for Carpal Tunnel Syndrome, including braces, injections and carpal tunnel release. Patient states understanding of all options and has elected to proceed with Bilateral Carpal Tunnel injections today. The patient education brochure on carpal tunnel syndrome has been provided to the patient. Continue carpal tunnel night splints (patient has already purchased) B6/E Vitamins If symptoms persist without benefit from injection after 2 weeks, we will obtain emg/ncs study. We discussed our intent to continue with conservative management as long as the conservative management provides appropriate relief of symptoms or until surgery is elected by the patient. Return in about 3 months (around 08/29/2025) for repeat injections. Patient instructions given. Discussed elevated BMI and elevated BP with patient including risk factors. Patient will follow-up with PCP for half-way treatment plan. I have examined and questioned the above listed patient and provided or received all documentation,establishing, confirming, and revising as necessary, the findings and statements noted. . EMR/Dragon/Scutcher Tender disclaimer: Much of this encounter note is an electronic control integration engineer/translation of spoken language to printed text. The electronic translation of spoken language may permit erroneous, or at times, nonsensical words or phrases to be inadvertently transcribed; Although thenote is reviewed for such errors, some may still exist. documented in this encounter Plan of Treatment Upcoming Encounters Date Type Department Care Team (Late st Contact Info) Description 08/30/2025 1:45 PM EST Office Visit [facility] Orthopedics - [address] [place] [address] Yohana Bah MD [address] [place] [address] documented as of this encounter Procedures Procedure Name Priority Date/Time Associated Diagnosis Comments FS_[facility]_MODEL GENERAL FORM Routine 05/29/2025 2:22 PM EDT Bilateral carpal tunnel syndrome documented in this encounter Results * B CTI (05/29/2025 2:22 PM EDT) Narrative Yohana Bah MD - 05/29/2025 2:22 PM EDT Yohana Bah MD 05/29/2025 2:23 PM B CTI Date/Time: 05/29/2025 2:22 PM Performed by: Yohana Bah MD Authorized by: Yohana Bah MD Consent: Consent obtained: Verbal and written Consent given by: Patient Risks, benefits, and alternatives were discussed: yes Risks discussed: Bleeding, infection, pain, incomplete drainage, nerve damage and poor cosmetic result [place] protocol: Procedure explained and questions answered to patient or proxy's satisfaction: yes Relevant documents present and verified: yes Test results available: yes Imaging studies available: yes Site/side marked: yes Immediately prior to procedure, a time out was called: yes Patient identity confirmed: Verbally with patient Indications: Indications: Carpal Tunnel Syndrome Pre-procedure details: Preparation: Patient was prepped and draped in the usual sterile fashion Sedation: Sedation type: None Anesthesia: Anesthesia method: Topical application Procedure specific details: Bilateral Carpal Tunnel injections We discussed conservative treatment with Kenalog injections which can take several days for effect. Transient numbness in the hand was discussed post injection which will resolve in a few hours. Each hand was laid in the supine position. 1 ml of 1% Lidocaine and Kenalog 10mg were injected ulnar to the palmaris longus tendon (in the soft indentation of the volar wrist) after the skin was prepped with adequately with alcohol. A sterile bandaid was applied. Post-procedure details: Procedure completion: Tolerated well, no immediate complications Yohana Bah MD PROCEDURE/MINOR SURGICAL ORDERABLES Final Result documented in this encounter Visit Diagnoses Diagnosis Bilateral carpal tunnel syndrome- Primary Carpal tunnel syndrome documented in this encounter Administered Medications Inactive Administered Medications - up to 3 most recent administrations Medication Order MAR Action Action Date Dose Rate Site lidocaine (XYLOCAINE) injection 1% 1 mL Once, other - see admin instructions/comments, On Thu05/29/25 at 1500, For 1 doseIndications:Bilateral carpal tunnel syndrome Given 05/29/2025 2:17 PM EDT 1 mL triamcinolone acetonide (KENALOG) injection 10 mg 10 mg Once, intra-articular, On Thu05/29/25 at 1500, For 1 doseIndications:Bilateral carpal tunnel syndrome Given 05/29/2025 2:18 PM EDT 10 mg documented in this encounter Care Teams A R Collections Rep Relationship Specialty Start Date End Date Alonso Parr PA-C [address] [place] [address] Physician Disc Pad Grinder Orthopedic Surgery 02/24/25 Yohana Bah MD [address] [facility] [address] [place] [address] Consulting Physician Orthopedic Surgery - Hand 05/29/25 documented as of this encounter
[2025-06-27 12:14] VITALS: BP 159/78; PULSE 68; RESP 18; TEMP 36.8; O2SAT 98; BMI 22.8
--- OUTSIDE RECORDS SUMMARY | 2025-06-27 12:30 | XMS_ITS | Clinical Summary ---
Author Organization [employer] ([place], [place], [place], [place]) Address [address] [place] [address] Care Team Providers Care Board Certified Arts Therapist Name Role Phone Alonso Parr PA-C Unavailable [phone] Yohana Bah MD Unavailable [phone] Allergies No known active allergies Medications traZODone (DESYREL) 50 MG tablet Take 1 tablet (50 mg total) by mouth nightly. 02/04/2025 Active lovastatin (MEVACOR) 40 MG tablet Take 1 tablet (40 mg total) by mouth daily. 01/05/2025 Active hydroCHLOROthia zide (HYDRODIURIL) 25 MG tablet Take 0.5 tablets (12.5 mg total) by mouth every morning. 01/05/2025 Active lisinopriL (ZESTRIL) 20 MG tablet Take 1 tablet (20 mg total) by mouth 2 (two) times daily. 01/14/2025 Active Hospital, Clinic, or Other Facility Administered Medication Ordered Dose Route Frequency Start Date End Date Status triamcinolone acetonide (KENALOG) injection 10 mgIndications:Bilateral carpal tunnel syndrome 10 mg IAtc Once 05/29/2025 05/29/2025 En ded lidocaine (XYLOCAINE) injection 1%Indications:Bilateral carpal tunnel syndrome 1 mL OTHER Once 05/29/2025 05/29/2025 En ded Active Problems No known active problems Encounters Date Type Department Care Team Description 05/29/2025 1:30 PM EDT Office Visit [facility] Orthopedics - [address] [place] [address] Yohana Bah MD Bilateral carpal tunnel syndrome (Primary Dx) from Last 3 Months Family History Medical History Relation Name Comments Arthritis Other Hyperlipidemia Other Hypertension Other Relation Name Status Comments Other Social History Tobacco Use Types Packs/Day Years Used Date Smoking Tobacco: Never Smokeless Tobacco: Never Tobacco Cessation:Counseling Given: Not Answered Alcohol Use Standard Drinks/Week Comments Never 0 (1 standard drink = 0.6 oz pur e alcohol) Sex and Gender Information Value Date Recorded Sex Assigned at Not on file Legal Sex Male 6:34 PM CDT Gender Identity Not on file Sexual Orientation Not on file Last Filed Vital Signs Vital Sign Reading [...] Mass Index 25.75 05/29/2025 1:22 PM EDT Plan of Treatment Upcoming Encounters Date Type Department Care Team (Late st Contact Info) Description 08/30/2025 1:45 PM EST Office Visit [facility] Orthopedics - [address] [place] [address] Yohana Bah MD [address] [place] [address] Health Maintenance Due Date Last Done Comments Depression Screening (12+) 1956 Pneumococcal 50+ years (1 of 1 - PCV) 1994 Shingles Vaccine (Zoster) (1 of 2) 1994 Respiratory Syncytial Virus (RSV) Adult or (1 - 1-dose 75+ series) 2019 Medicare Initial AWV G0438 10/27/2023 COVID-19 VACCINE ( - season) 2024 08/28/2021, 12/26/2020, 12/04/2020 Falls Risk Screening 10/26/2024 Influenza Vaccine (#1) 2025 07/23/2022, 2020 Tobacco Cessation Counseling and Screening (12+) 05/29/2026 05/29/2025 DTAP/TDAP/TD VACCINES (2 - T d or Tdap) 04/07/2034 04/07/2024 Procedures Procedure Name Priority Date/Time Associated Diagnosis Comments FS_[facility]_MODEL GENERAL FORM Routine 05/29/2025 2:22 PM EDT Bilateral carpal tunnel syndrome from Last 3 Months Results * B CTI (05/29/2025 2:22 PM EDT) Yohana Dumont MD - 05/29/2025 2:22 PM EDT Yohana Bah MD 05/29/2025 2:23 PM B CTI Date/Time: 05/29/2025 2:22 PM Performed by: Yohana Bah MD Authorized by: Yohana Bah MD Consent: Consent obtained: Verbal and written Consent given by: Patient Risks, benefits, and alternatives were discussed: yes Risks discussed: Bleeding, infection, pain, incomplete drainage, nerve damage and poor cosmetic result [place] protocol: Procedure explained and questions answered to [...] Bah MD PROCEDURE/MINOR SURGICAL ORDERABLES Final Result from Last 3 Months Insurance [facility] MEDICARE PPO Care Teams Board Certified Arts Therapist Relationship Specialty Start Date End Date Alonso Parr PA-C [address] [facility] [address] [place] [address] Physician Business Support Associate Orthopedic Surgery 02/24/25 Yohana Bah MD [address] [facility] [address] [place] [address] Consulting Physician Orthopedic Surgery - Hand 05/29/25
--- OUTSIDE RECORDS SUMMARY | 2025-06-27 12:31 | XMS_ITS | Referral Summary ---
Author Organization [employer] ([place], [place], [place], [place]) Address [address] [place] [address] Care Team Providers Care Computer Engineering Professor Name Role Phone Alonso Parr PA-C Unavailable Yohana Bah MD Unavailable Encounters Date Type Department Care Team Description 05/29/2025 1:30 PM EDT Office Visit [facility] Orthopedics - [address] [place] [address] Yohana Bah MD Bilateral carpal tunnel syndrome (Primary Dx) from Last 3 Months Allergies No known active allergies Medications traZODone [...] ded Active Problems No known active problems Social History Tobacco Use Types Packs/Day Years [...] Description 08/30/2025 1:45 PM EST Office Visit [facility] Orthopedics - [address] [place] [address] Yohana Bah MD [address] [place] [address] Procedures Procedure Name Priority Date/Time Associated Diagnosis [...] drainage, nerve damage and poor cosmetic result [place] protocol: Procedure explained and questions answered to [...] Final Result from Last 3 Months Insurance [employer] MEDICARE PPO Care Teams Computer Engineering Professor Relationship Specialty Start Date End Date Alonso Parr PA-C [address] [place], [place] [phone] Physician Marine Pipefitter Orthopedic Surgery 02/24/25 Yohana Bah MD [address] [place] [address] Consulting Physician Orthopedic Surgery - Hand 05/29/25
--- NOTE | 2025-06-27 12:36 | HMH.EDGENADL ---
Discharge Plan Disposition Patient Disposition: Home, Self-Care Prescriptions Prescriptions: New cephalexin 500 mg capsule 500 mg PO QID 5 Days Qty: 20 0RF No Action lisinopril 20 mg tablet See Rx Instructions .ROUTE .COMPLEX Qty: 180 1RF Dose Instruction: TAKE 2 TABLETS ONE TIME DAILY Rx Instructions: TAKE 2 TABLETS ONE TIME DAILY trazodone 50 mg tablet See Rx Instructions .ROUTE .COMPLEX Qty: 90 3RF Dose Instruction: TAKE 1 TABLET AT BEDTIME NEEDED FOR SLEEP Rx Instructions: TAKE 1 TABLET AT BEDTIME NEEDED FOR SLEEP hydrochlorothiazide 25 mg tablet See Rx Instructions .ROUTE .COMPLEX Qty: 45 1RF Dose Instruction: TAKE 1/2 TABLET ONE TIME DAILY Rx Instructions: TAKE 1/2 TABLET ONE TIME DAILY lovastatin 40 mg tablet See Rx Instructions .ROUTE .COMPLEX Qty: 90 1RF Dose Instruction: TAKE 1 TABLET EVERY DAY Rx Instructions: TAKE 1 TABLET EVERY DAY Referrals Follow up/Referrals: Anthony Sprague MD [Primary Care Provider, Medical] - See instructions Activity Restrictions/Add. Instructions Additional Instructions/Restrictions: There is no evidence of an infection in the tissue is a avulsed off the dorsal aspect of your hand there is no tissue to reapproximate this will heal by secondary intention many or close up on its own. Please keep this clean with soap and water twice a day and apply topical antibiotic ointment such as triple antibiotic ointment or Neosporin to this twice a day return with any spreading redness pus coming from the wounds fevers etc. You have been given prophylactic antibiotics orally to take as well given the underlying significant problems you have had in your hand from a chronic standpoint. Clinical Impressions Clinical Impression: Soft tissue avulsion Print Language Print Language: Telugu Discharge ED Provider: Adolfo Mcginnis General Adult HPI General Chief complaint: Skin/Abscess/Foreign Body Stated complaint: AO 06/18/2025 right hand laceration Time Seen by Provider: 06/27/25 12:28 Mode of Arrival: Family Vehicle Source of Information: Medical Record Description of Symptoms (Recalled from ER Triage Doc. by RN): Pt c/o posterior hand laceration from 1 wk ago ago a tree branch. He washed it with peroxied and bandaged. However, no he feels he needs an antibiotic. The area is open and red/swollen. History of Present Illness HPI narrative: Patient is an 79-year-old who states that he had a tree branch that fell and hit his hand told me a day ago but told nursing 1 week ago. Put peroxide on this and did not clean it with soap and water has been placing Vaseline. Denies any spreading redness pus high fevers etc. 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 Therefore he is primarily concerned about the infection risk. Not up-to-date on tetanus. States he does not believe he broke his hand. Related Data Previous Rx's ?Medication ?Instructions ?Recorded lisinopril 20 mg tablet See Rx Instructions .Route 03/31/25 .COMPLEX #180 tabs trazodone 50 mg tablet See Rx Instructions .Route 04/24/25 .COMPLEX #90 tabs hydrochlorothiazide 25 mg tablet See Rx Instructions .Route 05/31/25 .COMPLEX #45 tabs lovastatin 40 mg tablet See Rx Instructions .Route 05/31/25 .COMPLEX #90 tabs cephalexin 500 mg capsule 500 mg PO QID 5 days #20 caps 06/27/25 Allergies Allergy/AdvReac Type Severity Reaction Status Date / Time No Known Allergies Allergy Verified 05/24/25 09:08 [facility] Disclaimer: The information contained in this section may have been updated after the patient was seen, as this information can be updated by other users. Medical History Prostate cancer Social History Smoking Status: Former smoker alcohol intake: never current occupational status: previously employed Travel in the last 8 weeks?: None Have you lived/traveled outside [place] in past 30 days?: No Contact w/someone who lives/traveled outside [place] past 30 days?: No Exposure to someone with infectious disease in past 14 days?: No Do you have a fever (greater than 100.4 F or 38 C)?: No Have you tested positive for COVID-19?: No Exposed to someone with COVID-19 in past 14 days?: No Do you have a sore throat?: No Do you have a cough?: No Do you have any weakness?: No Do you have any diarrhea?: No Are you experiencing any unusual bleeding?: No Do you have any muscle aches/pain?: No Do you have any abdominal pain?: No Are you experiencing loss of taste or smell?: No Other Medical History Have you received the Pneumonia Vaccine: No ROS Obtained: Yes All systems reviewed & no additional complaints except as documented Physical Exam General General appearance: alert and in no apparent distress Respiratory Respiratory exam: Present normal lung sounds bilaterally Cardiovascular Cardiovascular exam: Present regular rate Extremities Exam Extremities exam: Present other (5 x 5 cm erythema of superficial tissue avulsion on the dorsal aspect of the right hand no significant erythema or swelling or purulence) Neurological Exam Neurological exam: Present alert and oriented X3 Medical Decision Making Medical Records Screening: Per USPSTF and CDC recommendations, given the prevalence of disease in our region, it is our hospital?s policy to screen for HIV and viral Hepatitis for all patients aged 18 and over and those with ongoing risk factors. Sonny Inquiry Pt receiving controlled substance: No Vital Signs: 06/27/25 12:14 Temperature 98.2 F Temperature Source Oral Pulse Rate [Right] 68 Respiratory Rate 18 Blood Pressure [Left Arm] 159/78 H Blood Pressure Mean [Left Arm] 105 Blood Pressure Source [Left Arm] Automatic Cuff 02 Sat by Pulse Oximetry 98 Oxygen Delivery Method Room Air Orders (Tests/Meds): ORDERS Category Date Time Status XR hand RT min 3V Stat Exams 06/27/25 12:29 Stop Req Medical Decision Narrative: Patient with above history and physical no evidence of obvious infection he has been doing a good job taking care of this from a wound management standpoint he has a tissue avulsion no tissue to reapproximate from a repair standpoint. I have advised that he keep this clean with soap and water and apply topical antibiotic ointment on this. Given his concern about his chronic degeneration in his hand and to prevent any worsening of this we will give prophylactic antibiotics for 5 days. Return precautions have been emphasized. I offered an x-ray and tetanus however patient declined both of these and was discharged in stable condition. Critical Care Critical Care Time Critical Care Time: No
[2025-06-27] MEDS: BACITRACIN OINT 0.9GM UDP 1 EACH TP (12:45)
[2025-06-27 12:48] VITALS: BP 159/78; PULSE 68; RESP 18; TEMP 36.8; O2SAT 98
== END 2025-06-27 12:49 | disposition home or self-care (01) ==
PROVIDERS: Emergency Provider Student in an Organized Health Care Education/Training Program; PCP Internal Medicine
DX: T14.8XXA Other injury of unspecified body region, initial encounter (principal)
CPT/HCPCS: 99283